=== PATIENT | male | born 1965 | race African-American/Black ===

== ENCOUNTER 2017-09-10 15:24 | Emergency (ER) | payer MEDICAID, OTHER, SELFPAY ==
[~2017-09-10] VITALS: Ht 172.7 cm; Wt 103.7 kg
[2017-09-10 15:34] VITALS: BP 175/96
[2017-09-10 16:26] LABS: BASOPHILS # (AUTO) 0.04 x10^3/uL (0-0.1); BASOPHILS % (AUTO) 1 % (0-1); EOSINOPHILS % (AUTO) 6 % (1-7); LYMPHOCYTES # (AUTO) 2.93 x10^3/uL (1-3.4); LYMPHOCYTES % (AUTO) 40 % (22-44); MD NO; MEAN CORPUSCULAR VOLUME 91.4 fL (81-97); MEAN PLATELET VOLUME 7.6 fL (7.4-10.4); MONOCYTES # (AUTO) 0.87 x10^3/uL (0.2-0.8); MONOCYTES % (AUTO) 12 % (2-9); NEUTROPHILS # (AUTO) 3.17 x10^3/uL (1.8-6.8); NEUTROPHILS % (AUTO) 43 % (42-75); PLATELET COUNT 223 x10^3/uL (130-400); RED CELL DISTRIBUTION WIDTH 12.9 % (9.4-14.8)
[2017-09-10 16:32] LABS: ALBUMIN 3.6 g/dL (3.4-5.0); ANION GAP 8 mmol/L (5-15); CHLORIDE 105 mmol/L (98-107); CREATININE 0.91 mg/dL (0.7-1.3)
[2017-09-10 16:37] LABS: TROPONIN I < 0.015 ng/mL (0.000-0.045)
[2017-09-10 16:44] LABS: CALCIUM 8.7 mg/dL (8.5-10.1)
== END 2017-09-10 17:43 | disposition home or self-care (01) ==
LOC: ED 17:32
DX: H53.8 Other visual disturbances (principal); I10 Essential (primary) hypertension; Z87.891 Personal history of nicotine dependence
CPT/HCPCS: 36415; 71045; 80048; 82040; 84484; 85025; 93005; 99285

== ENCOUNTER 2018-02-18 22:28 | Emergency (ER) | payer SELFPAY ==
[~2018-02-18] VITALS: Ht 172.7 cm; Wt 100.8 kg
[2018-02-18] MEDS ORDERED: LISI-170 PO (23:53)
[2018-02-19 00:57] VITALS: BP 131/89
[2018-02-19] MEDS ORDERED: METHOCARBAMOL 750 MG TABLET ONE (01:05)
[2018-02-19] MEDS ORDERED: ACETAMINOPHEN 325 MG TABLET ONE (01:06)
[2018-02-19] MEDS ORDERED: METHOCARBAMOL 750 MG TABLET PO ONE (01:30)
[2018-02-19] MEDS ORDERED: ACETAMINOPHEN 325 MG TABLET PO ONE (01:30)
== END 2018-02-19 01:34 | disposition home or self-care (01) ==
LOC: ED 23:59
DX: S50.312A Abrasion of left elbow, initial encounter (principal); S00.81XA Abrasion of other part of head, initial encounter; R10.2 Pelvic and perineal pain; I10 Essential (primary) hypertension; Z88.5 Allergy status to narcotic agent; V23.4XXA Motorcycle driver injured in collision with car, pick-up truck or van in traffic accident, initial encounter; Y93.89 Activity, other specified; Y99.8 Other external cause status; Y92.89 Other specified places as the place of occurrence of the external cause
CPT/HCPCS: 71046; 72110; 72170; 99284

== ENCOUNTER 2018-07-15 09:52 | Emergency (ER) | payer OTHER ==
[~2018-07-15] VITALS: Ht 170.2 cm; Wt 103.8 kg
[~2018-07-15 09:52] MED LIST: LISI-170 PO
[2018-07-15 10:03] VITALS: BP 163/97
== END 2018-07-15 10:45 | disposition home or self-care (01) ==
LOC: ED 10:20
DX: H00.012 Hordeolum externum right lower eyelid (principal); I10 Essential (primary) hypertension; Z87.891 Personal history of nicotine dependence
CPT/HCPCS: 99283

== ENCOUNTER 2019-09-15 18:46 | Emergency (ER) | payer OTHER ==
[~2019-09-15] VITALS: Ht 170.2 cm; Wt 103.1 kg
[2019-09-15] MEDS ORDERED: AMOXICILLIN 500 MG CAPSULE PO ONE (19:23)
[2019-09-15] MEDS ORDERED: KETOROLAC 30 MG/1 ML IM ONE ×2 (19:30→22:30)
[2019-09-15] MEDS ORDERED: DIAZEPAM 5 MG/ML, 2ML IV ONE (21:30)
--- NOTE | 2019-09-15 21:49 | NUR ---
CT PENDING LAB/CREATINE.
[2019-09-15 22:07] LABS: ANION GAP 5 mmol/L (5-15); CALCIUM 8.2 mg/dL (8.5-10.1); CHLORIDE 107 mmol/L (98-107); CREATININE 0.96 mg/dL (0.7-1.3)
[2019-09-15 22:18] LABS: MEAN CORPUSCULAR HEMOGLOBIN 31.6 pg (27.5-34.5); MEAN CORPUSCULAR HGB CONC 33.6 g/dL (33.2-36.2); MEAN PLATELET VOLUME 7.5 fL (7.4-10.4); PLATELET COUNT 241 x10^3/uL (130-400); RED BLOOD COUNT 5.17 x10^6/uL (4.38-5.82); RED CELL DISTRIBUTION WIDTH 12.6 % (9.4-14.8)
[2019-09-15] MEDS ORDERED: KETOROLAC 30 MG/1 ML ONE (22:20)
[2019-09-15] MEDS ORDERED: DIAZEPAM 5 MG/ML, 2ML ONE (22:21)
[2019-09-15] MEDS ORDERED: AMOXICILLIN 500 MG CAPSULE ONE (22:21)
[2019-09-15 22:23] LABS: BASOPHILS # (AUTO) 0.06 x10^3/uL (0-0.1); BASOPHILS % (AUTO) 1 % (0-1); EOSINOPHILS # (AUTO) 0.45 x10^3/uL (0-0.4); EOSINOPHILS % (AUTO) 4 % (1-7); LYMPHOCYTES % (AUTO) 30 % (22-44); MD SCAN; MONOCYTES # (AUTO) 0.92 x10^3/uL (0.2-0.8); MONOCYTES % (AUTO) 7 % (2-9); NEUTROPHILS # (AUTO) 7.61 x10^3/uL (1.8-6.8); NEUTROPHILS % (AUTO) 59 % (42-75)
--- NOTE | 2019-09-15 22:28 | NUR ---
NEED IV FOR CT.
--- NOTE | 2019-09-15 22:30 | NUR ---
assumed care of pt and iv started, medicated pt per emar, pt in pain, neck hard to turn blankets and pillow at bs, called ct to get pt over.
--- NOTE | 2019-09-15 22:59 | NUR ---
pt in ct
[2019-09-15] MEDS ORDERED: OMNIPAQUE 350 MG/ML, 100ML BOTTLE ONE (23:01)
--- NOTE | 2019-09-15 23:27 | NUR ---
pt sleeping, lights down. will monitor.
[2019-09-15] MEDS ORDERED: METHOCARBAMOL 750 MG TABLET ONE (23:49)
[2019-09-16] MEDS ORDERED: METHOCARBAMOL 750 MG TABLET PO ONE
[2019-09-16 00:07] VITALS: BP 154/90
--- NOTE | 2019-09-16 01:03 | NUR ---
DC BY MARCELA DUGAN
== END 2019-09-16 01:05 | disposition home or self-care (01) ==
LOC: ED 09-16 00:45
DX: S16.1XXA Strain of muscle, fascia and tendon at neck level, initial encounter (principal); L03.221 Cellulitis of neck; I10 Essential (primary) hypertension; X58.XXXA Exposure to other specified factors, initial encounter; Y93.89 Activity, other specified; Y92.89 Other specified places as the place of occurrence of the external cause; Y99.8 Other external cause status
CPT/HCPCS: 36415; 70491; 80048; 85025; 96372; 96374; 99284; J1885; J3360; Q9967